=== PATIENT | female | born 1960 | race Caucasian/White ===

== ENCOUNTER 2019-11-14 10:25 | Emergency (ER) | payer BC ==
[2019-11-14 11:21] LABS: Hematocrit 35 % (35-47); Hemoglobin 11.1 g/dL (12.0-16.0); Mean Corpuscular HGB Conc 32 g/dL (31-36); Mean Corpuscular Hemoglobin 21 pg (27-31); Mean Corpuscular Volume 67 fL (80-97); Mean Platelet Volume 7.7 fL (7.4-10.4); Platelet Count 245 10^3/uL (150-450); Red Blood Count 5.23 10^6 /uL (3.70-4.87); Red Cell Distribution Width 16 % (10-15); White Blood Count 6.7 10^3/uL (3.5-10.8)
[2019-11-14 11:25] LABS: Albumin 3.9 g/dL (3.2-5.2); Albumin/Globulin Ratio 1.3 (1-3); BUN/Creatinine Ratio 27.3 (8-20); Calcium 9.5 mg/dL (8.6-10.3); EGFR African American 110.9 (>60); EGFR Non-African American 91.7 (>60); Globulin 3.1 g/dL (2-4); Magnesium 2.1 mg/dL (1.9-2.7); Total Bilirubin 0.6 mg/dL (0.2-1.0)
[2019-11-14 11:27] LABS: Troponin I 0.01 ng/mL (<0.03)
[2019-11-14 11:38] LABS: ABS Basophils 0.1 10^3/ul (0-0.2); ABS Eosinophils 0.2 10^3/ul (0-0.6); ABS Lymphocytes 2.1 10^3/ul (1.0-4.8); ABS Monocytes 0.7 10^3/ul (0-0.8); Eosinophil % 2.5 %; Nucleated Red Blood Cells % 0.1
[2019-11-14 11:49] LABS: Microcytosis 3+
[2019-11-14 12:42] VITALS: BP 97/56
== END 2019-11-14 12:45 | disposition home or self-care (01) ==
LOC: ED 10:25

== ENCOUNTER 2019-12-21 12:01 | Inpatient (IN) ==
[2019-12-21] MEDS ORDERED: Lactated Ringers 1000 ml BAG 1,000 ML IV ONE (12:20)
[2019-12-21 12:31] LABS: ABS Basophils 0.1 10^3/ul (0-0.2); ABS Eosinophils 0.2 10^3/ul (0-0.6); ABS Lymphocytes 2.2 10^3/ul (1.0-4.8); ABS Monocytes 0.6 10^3/ul (0-0.8); Eosinophil % 3.5 %; Hematocrit 33 % (35-47); Hemoglobin 10.7 g/dL (12.0-16.0); Lymphocyte % 40.4 %; Mean Corpuscular HGB Conc 32 g/dL (31-36); Mean Corpuscular Hemoglobin 22 pg (27-31); Mean Corpuscular Volume 67 fL (80-97); Mean Platelet Volume 7.7 fL (7.4-10.4); Nucleated Red Blood Cells % 0.1; Platelet Count 268 10^3/uL (150-450); Red Blood Count 4.95 10^6 /uL (3.70-4.87); Red Cell Distribution Width 17 % (10-15); White Blood Count 5.6 10^3/uL (3.5-10.8)
[2019-12-21 12:35] LABS: INR 0.99 (0.82-1.09)
[2019-12-21 12:45] LABS: ALT 13 U/L (7-52); AST 19 U/L (13-39); Albumin/Globulin Ratio 1.5 (1-3); Alkaline Phosphatase 68 U/L (34-104); Anion Gap 6 mmol/L (2-11); Blood Urea Nitrogen 14 mg/dL (6-24); CO2 Carbon Dioxide 26 mmol/L (22-32); Chloride 108 mmol/L (101-111); EGFR African American 121.5 (>60); EGFR Non-African American 100.4 (>60); Globulin 2.7 g/dL (2-4); Glucose 116 mg/dL (70-100); Magnesium 1.9 mg/dL (1.9-2.7); Potassium 3.9 mmol/L (3.5-5.0); Sodium 140 mmol/L (135-145); Total Protein 6.7 g/dL (6.4-8.9)
[2019-12-21 13:34] LABS: Free T4 1.02 ng/dL (0.61-1.12)
[2019-12-21] MEDS ORDERED: Atropine 0.1 MG/ML 10 ml SYR (1 mg) ONE ×2 (13:48→21:12)
[2019-12-21] MEDS ORDERED: Ondansetron 4 mg VIAL 2 MG/ML 2 ml VIAL IV PRN (14:23)
[2019-12-21] MEDS ORDERED: Fluticasone NASAL SPRAY 50MCG 16 gm SPRAY BTL BOTH NARES PRN (14:28)
[2019-12-22] MEDS ORDERED: NS 0.9% 1000 ml BAG 1,000 ML IV SCH (00:01)
[2019-12-22] MEDS ORDERED: Morphine 2 MG/ML SYRINGE IV ONE (02:20)
[2019-12-22] MEDS ORDERED: Morphine 2 MG/ML SYRINGE ONE (02:24)
[2019-12-22 04:16] LABS: ABS Basophils 0.1 10^3/ul (0-0.2); ABS Eosinophils 0.2 10^3/ul (0-0.6); ABS Lymphocytes 2.2 10^3/ul (1.0-4.8); ABS Monocytes 0.5 10^3/ul (0-0.8); Eosinophil % 4.8 %; Hematocrit 30 % (35-47); Hemoglobin 9.5 g/dL (12.0-16.0); Lymphocyte % 46.5 %; Mean Corpuscular HGB Conc 32 g/dL (31-36); Mean Corpuscular Hemoglobin 22 pg (27-31); Mean Corpuscular Volume 68 fL (80-97); Mean Platelet Volume 7.7 fL (7.4-10.4); Platelet Count 217 10^3/uL (150-450); Red Blood Count 4.39 10^6 /uL (3.70-4.87); Red Cell Distribution Width 16 % (10-15); White Blood Count 4.7 10^3/uL (3.5-10.8)
[2019-12-22 04:28] LABS: BUN/Creatinine Ratio 26.4 (8-20); Calcium 8.3 mg/dL (8.6-10.3); EGFR African American 142.9 (>60); EGFR Non-African American 118.1 (>60); Magnesium 1.8 mg/dL (1.9-2.7); Potassium 3.8 mmol/L (3.5-5.0)
[2019-12-22] MEDS ORDERED: Magnesium Sulfate IV 1GM/100ML 1 GM/100 ML BAG IV ONE (04:50)
[2019-12-22 05:02] LABS: Troponin I 0.01 ng/mL (<0.03)
[2019-12-22] MEDS ORDERED: ceFAZolin 2 GM PREMIX in ORs 2 GM/50 ML BAG IVPB ONE (06:00)
[2019-12-22] MEDS ORDERED: Lidocaine 1% VIAL 10 MG/ML VIAL ONE ×2 (06:19→07:14)
[2019-12-22] MEDS ORDERED: Flumazenil 0.5 mg/5 ml 0.1 MG/ML 5 ml VIAL ONE (06:19)
[2019-12-22] MEDS ORDERED: fentaNYL 100 mcg/2 ml 50 MCG/ML VIAL ONE (06:19)
[2019-12-22] MEDS ORDERED: Midazolam 5 mg/5 ml VIAL 1 mg/ml 5 ml VIAL (5 mg) ONE ×2 (06:19→07:17)
[2019-12-22] MEDS ORDERED: Naloxone 0.4 mg VIAL 0.4 mg/ml 1 ml VIAL ONE (06:19)
[2019-12-22] MEDS ORDERED: Iohexol 300 (CONTRAST) 10 ML SDV ONE (06:21)
[2019-12-22] MEDS ORDERED: diPHENhydraMINE IV 50 MG/ML 1 ml VIAL (BENADRYL) ONE (07:47)
[2019-12-22] MEDS ORDERED: ceFAZolin VIAL(*) 1 GM in NS 0.9% 50 ML 50 ML IVPB SCH (09:00)
[2019-12-22] MEDS: Multivitamins/Minerals TAB PO SCH (11:21)
[2019-12-22] MEDS: VALACYCLOVIR 500 MG PO SCH (11:21)
[2019-12-22] MEDS: ceFAZolin VIAL(*) 1 GM in NS 0.9% 50 ML 50 ML IVPB SCH (16:25)
[2019-12-23] MEDS: ceFAZolin VIAL(*) 1 GM in NS 0.9% 50 ML 50 ML IVPB SCH ×2 (00:24→09:06)
[2019-12-23] MEDS: Multivitamins/Minerals TAB PO SCH (08:55)
[2019-12-23] MEDS: VALACYCLOVIR 500 MG PO SCH (08:56)
[2019-12-23] MEDS ORDERED: Aspirin EC 81 mg TAB.EC (enteric coated) PO SCH (09:00)
[2019-12-23 09:58] LABS: Hematocrit 33 % (35-47); Hemoglobin 10.3 g/dL (12.0-16.0); Mean Corpuscular HGB Conc 32 g/dL (31-36); Mean Corpuscular Hemoglobin 21 pg (27-31); Mean Corpuscular Volume 68 fL (80-97); Mean Platelet Volume 7.7 fL (7.4-10.4); Platelet Count 211 10^3/uL (150-450); Red Blood Count 4.84 10^6 /uL (3.70-4.87); Red Cell Distribution Width 16 % (10-15); White Blood Count 5.4 10^3/uL (3.5-10.8)
[2019-12-23 11:23] VITALS: BP 159/80
== END 2019-12-23 14:28 | disposition home or self-care (01) | DRG 171 ==
LOC: ED 12:01 → ICU 14:23 → MEDTELE 12-22 08:05
PROVIDERS: ADMIT Surgery Surgical Critical Care; ATTEND Hospitalist

== ENCOUNTER 2020-05-04 23:16 | Observation (INO) ==
[2020-05-04] MEDS ORDERED: NS 0.9% 1000 ml BAG 1,000 ML IV ONE (23:20)
[2020-05-04 23:51] LABS: Activated Partial Thrombo Time 27.5 seconds (26.0-38.0); INR 0.95 (0.82-1.09)
[2020-05-04 23:52] LABS: ABS Basophils 0.1 10^3/ul (0-0.2); ABS Eosinophils 0.2 10^3/ul (0-0.6); ABS Lymphocytes 2.7 10^3/ul (1.0-4.8); ABS Monocytes 0.5 10^3/ul (0-0.8); ABS Neutrophils 2.1 10^3/ul (1.5-7.7); Eosinophil % 3.8 %; Hematocrit 33 % (35-47); Hemoglobin 10.6 g/dL (12.0-16.0); Lymphocyte % 48.2 %; Mean Corpuscular HGB Conc 32 g/dL (31-36); Mean Corpuscular Hemoglobin 22 pg (27-31); Mean Corpuscular Volume 68 fL (80-97); Mean Platelet Volume 7.6 fL (7.4-10.4); Nucleated Red Blood Cells % 0.1; Platelet Count 249 10^3/uL (150-450); Red Blood Count 4.93 10^6 /uL (3.70-4.87); Red Cell Distribution Width 15 % (10-15); White Blood Count 5.7 10^3/uL (3.5-10.8)
[2020-05-04 23:55] LABS: Urine Appearance Clear; Urine Bilirubin Negative (Negative); Urine Blood 1+ (Negative); Urine Color Colorless; Urine Glucose Negative (Negative); Urine Ketones Negative (Negative); Urine Nitrite Negative (Negative); Urine Protein Negative (Negative); Urine Specific Gravity 1.003 (1.010-1.030); Urine Urobilinogen Negative (Negative)
[2020-05-04 23:56] LABS: Albumin 4.2 g/dL (3.2-5.2); Albumin/Globulin Ratio 1.4 (1-3); BUN/Creatinine Ratio 32.4 (8-20); Calcium 9.9 mg/dL (8.6-10.3); EGFR African American 96.9 (>60); EGFR Non-African American 80.1 (>60); Globulin 3.1 g/dL (2-4); HDL Cholesterol 53.7 mg/dL; Potassium 3.5 mmol/L (3.5-5.0); Total Bilirubin 0.5 mg/dL (0.2-1.0); Total Protein 7.3 g/dL (6.4-8.9)
[2020-05-04 23:57] LABS: Troponin I 0.01 ng/mL (<0.03)
[2020-05-05 00:08] LABS: Urine Bacteria 1+ (Absent); Urine Red Blood Cell Trace(0-2/hpf) (Absent); Urine White Blood Cell 1+(6-10/hpf) (Absent)
[2020-05-05] MEDS: Heparin 5000 UNITS/ML 1 mL VIAL SUBCUT SCH ×2 (04:09→13:16)
[2020-05-05] MEDS: NS 0.9% 1000 ml BAG 1,000 ML IV SCH ×2 (09:24→17:24)
[2020-05-05] MEDS ORDERED: Iohexol 350 (CONTRAST) 500 ML MDV IV ONE (10:02)
[2020-05-05 16:09] LABS: TSH Ultra Thyroid Stim Horm 1.37 mcIU/mL (0.34-5.60)
[2020-05-05 23:52] LABS: Troponin I 0.01 ng/mL (<0.03)
[2020-05-06 01:24] LABS: BUN/Creatinine Ratio 25.5 (8-20); EGFR African American 136.4 (>60); EGFR Non-African American 112.7 (>60); Magnesium 1.9 mg/dL (1.9-2.7); Potassium 3.9 mmol/L (3.5-5.0)
[2020-05-06] MEDS: NS 0.9% 1000 ml BAG 1,000 ML IV SCH (03:57)
[2020-05-06 08:15] LABS: ABS Basophils 0.1 10^3/ul (0-0.2); ABS Eosinophils 0.2 10^3/ul (0-0.6); ABS Lymphocytes 2.2 10^3/ul (1.0-4.8); ABS Monocytes 0.5 10^3/ul (0-0.8); ABS Neutrophils 1.2 10^3/ul (1.5-7.7); Eosinophil % 4.5 %; Hematocrit 31 % (35-47); Hemoglobin 9.9 g/dL (12.0-16.0); Lymphocyte % 52.4 %; Mean Corpuscular HGB Conc 32 g/dL (31-36); Mean Corpuscular Hemoglobin 22 pg (27-31); Mean Corpuscular Volume 68 fL (80-97); Mean Platelet Volume 8.3 fL (7.4-10.4); Nucleated Red Blood Cells % 0.1; Platelet Count 207 10^3/uL (150-450); Red Blood Count 4.52 10^6 /uL (3.70-4.87); Red Cell Distribution Width 16 % (10-15); White Blood Count 4.1 10^3/uL (3.5-10.8)
[2020-05-06 08:17] LABS: Albumin 3.5 g/dL (3.2-5.2); Albumin/Globulin Ratio 1.3 (1-3); BUN/Creatinine Ratio 19.6 (8-20); Calcium 8.7 mg/dL (8.6-10.3); EGFR African American 133.6 (>60); EGFR Non-African American 110.4 (>60); Globulin 2.7 g/dL (2-4); Potassium 3.8 mmol/L (3.5-5.0); Total Bilirubin 0.6 mg/dL (0.2-1.0); Total Protein 6.2 g/dL (6.4-8.9)
[2020-05-06 08:48] VITALS: BP 154/90
[2020-05-06] MEDS ORDERED: Vitamin THERAPEUTIC TAB PO SCH (09:00)
== END 2020-05-06 11:00 | disposition home or self-care (01) ==
LOC: ED 23:16 → INTOOBSV 05-05 01:02 → MEDTELE 05-05 01:02
PROVIDERS: ADMIT Internal Medicine Interventional Cardiology; ATTEND Internal Medicine